=== PATIENT | female | born 1995 | race Caucasian/White ===

== ENCOUNTER 2017-01-15 19:34 | Emergency (ER) | payer OTHER ==
[~2017-01-15] VITALS: Ht 172.7 cm; Wt 95.3 kg
[2017-01-15] MEDS ORDERED: NAPROSYN500 MG PO (20:47)
[2017-01-15] MEDS ORDERED: VALIUM5 MG PO (20:47)
[2017-01-15 21:24] VITALS: BP 130/64
== END 2017-01-15 21:25 | disposition home or self-care (01) ==
LOC: ER 19:34
DX: S39.012A Strain of muscle, fascia and tendon of lower back, initial encounter (principal); Z90.89 Acquired absence of other organs; W01.0XXA Fall on same level from slipping, tripping and stumbling without subsequent striking against object, initial encounter; Y93.89 Activity, other specified; Y92.89 Other specified places as the place of occurrence of the external cause; Y99.9 Unspecified external cause status

== ENCOUNTER 2021-05-16 19:37 | Emergency (ER) | payer OTHER ==
[~2021-05-16] VITALS: Ht 172.7 cm; Wt 97.5 kg
[~2021-05-16 19:37] MED LIST: NAPROSYN500 MG PO; VALIUM5 MG PO
[2021-05-16 20:09] LABS: URINE BILIRUBIN NEGATIVE (Negative); URINE BLOOD NEGATIVE (Negative); URINE CLARITY CLEAR; URINE COLOR YELLOW; URINE GLUCOSE-RANDOM* NEGATIVE (Negative); URINE KETONES NEGATIVE (Negative); URINE LEUKOCYTES-REFLEX NEGATIVE (Negative); URINE NITRITE-REFLEX NEGATIVE (Negative); URINE PROTEIN (DIPSTICK) NEGATIVE (Negative); URINE SPECIFIC GRAVITY <= 1.005 (1.005-1.035); URINE UROBILINOGEN 0.2 E.U./dl (0.2-1.0)
[2021-05-16 20:35] LABS: ABSOLUTE NEUTROPHILS 6.9 thou/uL (1.4-8.2); BASOPHILS 0.2 % (0.0-2.0); EOSINOPHILS 0.8 % (0.0-3.0); HEMATOCRIT 35.3 % (37.0-47.0); HEMOGLOBIN 12.2 gm/dL (12.0-15.0); LYMPHOCYTES 7.5 % (24.0-44.0); MCHC 34.6 g/dL (28.0-37.0); MCV 92.5 fL (80.0-100.0); PLATELET COUNT 188 thou/uL (150-400); POLYS 78.5 % (36.0-66.0); RBC 3.82 mil/uL (4.20-5.00); RDW 14.4 % (10.5-14.5); WBC 8.7 thou/uL (4.0-11.0)
[2021-05-16 20:50] LABS: CALCIUM 9.1 mg/dL (8.5-10.1); CREATININE 0.8 mg/dL (0.6-1.0); POTASSIUM 3.9 mmol/L (3.5-5.1)
[2021-05-16 20:56] LABS: ALBUMIN 3.4 g/dL (3.4-5.0); TOTAL BILIRUBIN 0.2 mg/dL (0.2-1.0); TOTAL PROTEIN 7.7 g/dL (6.4-8.2)
[2021-05-16] MEDS ORDERED: ONDANSETRON HCL4 M2 PO ×2 (22:07→22:33)
[2021-05-16 22:23] VITALS: BP 94/49
--- NOTE | 2021-05-17 07:58 | EKG ---
[address] [address] ELECTROCARDIOGRAM REPORT Name: JAUN RAO [facility] [id number] Admission: 05/16/21 Attend Phys: Discharge: 05/16/21 Date of : [birth year] Report #: [id number] [facility] ED Test Date: 2021-05-16 Test Time: 20:13:58 Pat Name: JAUN RAO Department: Room: Gender: Certified Medical Aide: Keisha Olsen CMA : [id number] Requested By: Malik Benjamin Order Number: [id number] MD: Fan Maravilla Measurements Intervals [place] Rate: 119 P: 42 PA: 125 QRS: 4 QRSD: 85 T: 17 QT: 299 QTc: 421 Interpretive Statements Sinus tachycardia otherwise normal no previous ECG available for comparison Electronically Signed On 05-17-2021 7:57:49 CDT by Fan Maravilla [email or web address] <ELECTRONICALLY SIGNED> By: Fan Maravilla MD, [facility] 05/17/21 0757 12 12 Fan Maravilla MD, FACC /EPI
== END 2021-05-16 22:23 | disposition home or self-care (01) ==
LOC: ER 19:37
PROVIDERS: Nurse Practitioner
DX: O98.512 Other viral diseases complicating pregnancy, second trimester (principal); Z20.822 Contact with and (suspected) exposure to COVID-19; O26.811 Pregnancy related exhaustion and fatigue, first trimester; B34.9 Viral infection, unspecified; R11.0 Nausea; Z3A.20 20 weeks gestation of pregnancy